=== PATIENT | male | born 1955 | race Caucasian/White ===

== ENCOUNTER 2018-06-15 14:01 | Outpatient (CLI) | payer MEDICAID ==
[~2018-06-15] VITALS: Ht 188 cm; Wt 81.6 kg
[2018-06-15 14:06] VITALS: BP 131/81
--- NOTE | 2018-06-15 14:56 | GI Initial Consult Note ---
History of Present Illness General Date patient seen: Jun 15, 2018 Time patient seen: 14:50 Referring physician: HMO Reason for Consultation: Colonoscopy Present Illness HPI 63 year old male patient presents today with c/o of occasional rectal bleed. Stated he had a colonoscopy done in April 2017 at [facility]. Hx of MCL (Mantile cell lymphoma). Denies any abdominal pain, N/V/D or constipation. Denies any unintentional weight loss or changes in dietary habits. No signs of abuse or neglect. Patient is not fall risk. Denies taking any prescription medications. Has seasonal allergies. Patient History History Provided By: Patient, Medical Record [facility] Narrative Asthma Skin CA hemorrhoids Pertinent Family History: none Social History: Reports: alcohol use - rare; Denies: smoking, drug use, other Review of Systems All Other Systems: negative except mentioned in HPI Physical Exam T 98.1 BP 131/81 P 93 98 RA Sp02 EP Interpretation: reviewed, normal General Appearance: well appearing, no apparent distress, alert Head: normocephalic EENT: PERRL/EOMI, normal ENT inspection Neck: supple Respiratory: normal breath sounds, no respiratory distress Cardiovascular: normal rate Gastrointestinal: normal inspection, non tender, soft, normal bowel sounds, non -distended Rectal: deferred Genitourinary: deferred Musculoskeletal: normal inspection, back normal Neurologic: normal inspection, alert, oriented x3, responsive Psychiatric: normal inspection, judgement/insight normal, memory normal Skin: normal inspection, normal color, no rash, warm/dry, palpation normal, well hydrated Lymphatic: normal inspection, no adenopathy GI: Plan Problems: (1) Rectal bleed (2) Asthma (3) Mantle cell lymphoma (4) Hemorrhoids Plan Colonoscopy to be scheduled pending prior authorization, will contact patient. - CLD & (Nulytely/Suprep/Movi-Prep) prep instructions given and acknowledged by patient. - NPO @ PR day prior procedure explained. Seen with Dr. Rome. Thank you for this patient referral. The patient was seen and examined at bedside and all new and available data was reviewed in the patients chart. I agree with the above findings, impression and plan. (Patient seen earlier today. Signature stamp does not reflect patient encounter time.). - MD Nasra KoehlerEncompass Health Valley Of The Sun Rehabilitation HospitalMinnie FINISH MILL OPERATOR Jun 15, 2018 14:56
[2018-06-15] MEDS ORDERED: NO MEDICATION (16:03)
[2018-06-15] MEDS ORDERED: PROAIR HFA8.5 GM INH (16:10)
== END 2018-06-15 14:31 | disposition home or self-care (01) ==
LOC: PAN 14:01
DX: K62.5 Hemorrhage of anus and rectum (principal); J45.909 Unspecified asthma, uncomplicated; C83.10 Mantle cell lymphoma, unspecified site; K64.9 Unspecified hemorrhoids
CPT/HCPCS: 99201